=== PATIENT | male | born 1935 | race Caucasian/White ===

== ENCOUNTER 2020-12-08 05:35 | Outpatient (CLI) | payer MEDICARE ==
[~2020-12-08] VITALS: Ht 172.7 cm; Wt 80.9 kg
[2020-12-08] MEDS ORDERED: LISI10TA25 PO (12:24)
[2020-12-08] MEDS ORDERED: SIMV40TA25 PO (12:24)
[2020-12-08] MEDS ORDERED: ATEN25TA PO (12:24)
[2020-12-08] MEDS ORDERED: GBPN600T PO (12:24)
[2020-12-08] MEDS ORDERED: GLIM4TAB56 PO (12:24)
[2020-12-08] MEDS ORDERED: TRIA1TAB5 PO (12:24)
[2020-12-08] MEDS ORDERED: TIZA4TAB4 PO (12:24)
[2020-12-08] MEDS ORDERED: CANA1TAB8 PO (12:38)
== END 2020-12-08 12:45 | disposition home or self-care (01) ==
LOC: PREOP 05:35
PROVIDERS: ATTEND Otolaryngology Otolaryngology/Facial Plastic Surgery
DX: Z01.818 Encounter for other preprocedural examination (principal)

== ENCOUNTER 2020-12-15 08:38 | Day surgery (SDC) | payer MEDICARE ==
[~2020-12-15] VITALS: Ht 172.7 cm; Wt 80.9 kg
[2020-12-15] VITALS (9 sets, daily range): BP systolic 114–165; BP diastolic 52–96
[~2020-12-15 08:38] MED LIST: ATEN25TA PO; CANA1TAB8 PO; GBPN600T PO; GLIM4TAB56 PO; LISI10TA25 PO; SIMV40TA25 PO; TIZA4TAB4 PO; TRIA1TAB5 PO
[2020-12-15] MEDS ORDERED: MUPIROCIN 2% OINT 22 GM (BACTROBAN) TUBE ONE (08:45)
[2020-12-15] MEDS ORDERED: LIDOCAINE/EPI 1%-1:100,000 (XYLOCAINE) 20ML ONE (08:45)
[2020-12-15] MEDS ORDERED: fentaNYL INJ 100 MCG/2 ML AMP ONE (08:48)
[2020-12-15] MEDS ORDERED: proPOfol 200 MG/20 ML (DIPRIVAN) VIAL IV ONE (08:56)
[2020-12-15] MEDS ORDERED: ONDANSETRON 4 MG/2 ML (SDV) Z0FRAN ONE (08:56)
[2020-12-15] MEDS ORDERED: SEVOFLURANE (ULTANE) 15 ML INHAL SOLN ONE ×2 (08:56→11:46)
[2020-12-15] MEDS ORDERED: LIDOCAINE PF 2% 5 ML (XYLOCAINE) VIAL ONE (08:56)
[2020-12-15] MEDS ORDERED: ROCURONIUM 10 MG/ML 5 ML SYRINGE IV ONE (08:56)
--- NOTE | 2020-12-15 08:58 | Progress Note-Pre Operative ---
Pre-Operative Progress Note H&P Reviewed The H&P was reviewed, patient examined and no changes noted. Date Seen by Provider: December 15, 2020 Time Seen by Provider: 08:45 Date H&P Reviewed: December 15, 2020 Time H&P Reviewed: 08:45 Pre-Operative Diagnosis: Skin Cancer-Ear SYLVIE HALL MD December 15, 2020 08:58
[2020-12-15] MEDS ORDERED: LACTATED RINGERS 1,000 ML IV PRN (09:00)
--- NOTE | 2020-12-15 09:42 | Progress Note-Post Operative ---
Post-Operative Progess Note Surgeon (s)/District Sales Leader (s) Surgeon SYLVIE HALL MD District Sales Leader n/a Pre-Operative Diagnosis Skin Cancer-Ear Post-Operative Diagnosis same Post-Op Procedure Note Date of Procedure: December 15, 2020 Name of Procedure Performed: Excision of Right EAr Lesion, Reconstruction with Local Advancement Flap Description & Findings Description and Findings: n/a Anesthesia Type gen lma Estimated Blood Loss minimal Packing none. Specimen(s) collected/removed rigth ear lesion to pathology SYLVIE HALL MD December 15, 2020 09:42
[2020-12-15] MEDS ORDERED: HYDROcodone/APAP 5 MG/325 MG (LORTAB) TAB PO PRN (09:45)
[2020-12-15] MEDS ORDERED: ACETAMINOPHEN 325 MG TABLET PO PRN (09:45)
[2020-12-15] MEDS ORDERED: ONDANSETRON 4 MG/2 ML (SDV) Z0FRAN IVP PRN (12:15)
[2020-12-15] MEDS ORDERED: morphine INJ 10 MG/ML 1ML (SYR OR VIAL) IVP ONE (12:15)
[2020-12-15] MEDS ORDERED: CEPH500T PO (13:39)
[2020-12-15] MEDS ORDERED: ACHD5005 PO (13:39)
--- NOTE | 2020-12-25 14:13 | Anesthesia-General Post-Op ---
General Patient Condition Mental Status/LOC: Same as Preop Cardiovascular: Satisfactory Nausea/Vomiting: Absent Respiratory: Satisfactory Pain: Controlled Complications: Absent Post Op Complications Complications None Follow Up Care/Instructions Patient Instructions None needed. Anesthesia/Patient Condition Patient Condition Post-dated progress note: Patient was seen after the procedure on 12-15-20 at approximately 1330 and he was doing well, no complaints, stable vital signs, no apparent adverse anesthesia pr oblems. CHRISTO FRANKLIN DO December 25, 2020 14:13
== END 2020-12-15 13:45 | disposition home or self-care (01) ==
LOC: SDC 08:38
PROVIDERS: ATTEND Otolaryngology Otolaryngology/Facial Plastic Surgery
DX: C44.222 Squamous cell carcinoma of skin of right ear and external auricular canal (principal); M19.90 Unspecified osteoarthritis, unspecified site; E11.9 Type 2 diabetes mellitus without complications; Z90.89 Acquired absence of other organs; Z79.899 Other long term (current) drug therapy; Z79.84 Long term (current) use of oral hypoglycemic drugs; Z83.3 Family history of diabetes mellitus
CPT/HCPCS: 82947; 87081; 88305; 88331; 88332

== ENCOUNTER 2021-04-12 05:32 | Outpatient (CLI) | payer MEDICARE ==
[~2021-04-12] VITALS: Ht 172.7 cm; Wt 80.9 kg
[~2021-04-12 05:32] MED LIST changes: +ACHD5005 PO; +CEPH500T PO
[2021-04-12] MEDS ORDERED: ASPI-999 PO (15:12)
== END 2021-04-12 15:27 | disposition home or self-care (01) ==
LOC: PREOP 05:32
PROVIDERS: ATTEND Otolaryngology Otolaryngology/Facial Plastic Surgery
DX: Z01.818 Encounter for other preprocedural examination (principal)

== ENCOUNTER 2021-04-19 07:27 | Day surgery (SDC) | payer MEDICARE ==
[~2021-04-19] VITALS: Ht 172.7 cm; Wt 80.9 kg
[2021-04-19] VITALS (10 sets, daily range): BP systolic 131–166; BP diastolic 56–79
[~2021-04-19 07:27] MED LIST changes: +ASPI-999 PO
--- OUTSIDE RECORDS SUMMARY | 2021-04-19 07:31 | XMS REPORT | Clinical Summary ---
Author Author [facility] Organization [facility] Address Unknown Phone Unavailable Care Team Providers Care Exerciser Name Role Phone Qasim Norton MD PCP Allergies Comments Active Allergy Reactions Severity Noted Date Last time it was used on his feet it did not bother him but had previously itched/rash locally Povidone-Iodine 07/03/2015 Medications End Date Status Medication Sig Dispensed Refills Start Date Active atenolol (TENORMIN) 50 MG 0 tablet 5 Active doxycycline hyclate 0 (VIBRAMYCIN) 50 MG 5 capsule Active glimepiride (AMARYL) 2 MG 0 tablet 5 Active lisinopril 0 (PRINIVIL,ZESTRIL) 20 MG 5 tablet Active metFORMIN (GLUCOPHAGE) 0 1000 MG tablet 5 Active simvastatin (ZOCOR) 40 MG 0 tablet 5 Active triamterene-hydrochloroth 0 iazide (MAXZIDE) 75-50 mg 5 per tablet Active gabapentin (NEURONTIN) Take 300 mg 0 300 MG capsule by mouth 3 (three) times a day. Active ketoconazole (NIZORAL) 2 Apply tiw 120 mL 6 1 % shampoo 6 Active fluocinonide (LIDEX) 0.05 Apply 60 mL 6 % external topically 7 solutionIndications: daily. 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 Family History Medical History Relation Name Comments Diabetes Mother Relation Name Status Comments Father Mother Social History Date Tobacco Use Types Packs/Day Years Used Former Smoker Comments Alcohol Use Standard Drinks/Week No 0 (1 standard drink = 0.6 o z pure alcohol) Sex Assigned at Date Recorded Not on file Last Filed Vital Signs Reading Time Taken Comments Vital Sign 138/64 10/21/2016 1:56 PM CDT Blood Pressure 82 10/21/2016 1:56 PM CDT Pulse 36.4 C (97.6 F) 10/21/2016 1:56 PM CDT Temperature 18 10/21/2016 1:56 PM CDT Respiratory Rate 91% 10/21/2016 1:56 PM CDT Oxygen Saturation - - Inhaled Oxygen Concentration 88.9 kg (196 lb) 10/21/2016 1:56 PM CDT Weight 172.7 cm (5' 8") 10/21/2016 1:56 PM CDT Height 29.8 10/21/2016 1:56 PM CDT Body Mass Index Plan of Treatment Health Maintenance Due Date Last Done Comments Td/Tdap# 1935 Zoster Vaccine# (1 of 2) 1987 Fall Risk Assessment # 2002 Pneumococcal Vaccine: 65+ 2002 Years (1 of 1 - PPSV23) Influenza Vaccine (#1) 2021 Results Not on filefrom Last 3 Months Insurance Type Payer Benefit Subscriber ID Effective Phone Address Plan / Dates Group Medicare MEDICARE MEDICARE [id number] [place] PART A B [facility] OUT OF [id number] [id number] [facility] Jose Cruz,Salomón R Personal/F Self [address] [place] (Home) [place], [place] [address] Jose Cruz,Salomón R Personal/F Self [address] [place] (Home) [place] [id number] Advance Directives For more information, please contact: [phone] 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
[2021-04-19] MEDS ORDERED: ONDANSETRON 4 MG/2 ML (SDV) Z0FRAN ONE (07:35)
[2021-04-19] MEDS ORDERED: proPOfol 200 MG/20 ML (DIPRIVAN) VIAL IV ONE (07:35)
[2021-04-19] MEDS ORDERED: LIDOCAINE PF 2% 5 ML (XYLOCAINE) VIAL ONE (07:35)
[2021-04-19] MEDS ORDERED: fentaNYL INJ 100 MCG/2 ML AMP ONE (07:35)
[2021-04-19] MEDS ORDERED: MUPIROCIN 2% OINT 22 GM (BACTROBAN) TUBE ONE (07:37)
[2021-04-19] MEDS ORDERED: LIDOCAINE/EPI 1%-1:100,000 (XYLOCAINE) 20ML ONE (07:37)
[2021-04-19] MEDS ORDERED: LACTATED RINGERS 1,000 ML IV PRN (08:00)
--- NOTE | 2021-04-19 09:05 | Progress Note-Pre Operative ---
Pre-Operative Progress Note H&P Reviewed The H&P was reviewed, patient examined and no changes noted. Date Seen by Provider: Apr 19, 2021 Time Seen by Provider: 07:30 Date H&P Reviewed: Apr 19, 2021 Time H&P Reviewed: 07:30 Pre-Operative Diagnosis: Rigth Post-Auricular Lesion SYLVIE HALL MD Apr 19, 2021 09:05
--- NOTE | 2021-04-19 09:06 | Progress Note-Post Operative ---
Post-Operative Progess Note Surgeon (s)/Boat Cleaning Supervisor (s) Surgeon SYLVIE HALL MD Boat Cleaning Supervisor n/a Pre-Operative Diagnosis Rigth Post-Auricular Lesion Post-Operative Diagnosis same Post-Op Procedure Note Date of Procedure: Apr 19, 2021 Name of Procedure Performed: Excison of Right Post-Auricular Lesion, Reconstruction with Full Thickness Skin Graft, Donor Site Right Neck Description & Findings Description and Findings: n/a Anesthesia Type lma Estimated Blood Loss minimal Packing none. Specimen(s) collected/removed right post auricular lesion for frozen section SYLVIE HALL MD Apr 19, 2021 09:06
[2021-04-19] MEDS ORDERED: ACETAMINOPHEN 325 MG TABLET PO PRN (09:15)
[2021-04-19] MEDS ORDERED: HYDROcodone/APAP 5 MG/325 MG (LORTAB) TAB PO PRN (09:15)
[2021-04-19] MEDS ORDERED: SEVOFLURANE (ULTANE) 15 ML INHAL SOLN ONE (09:44)
[2021-04-19] MEDS ORDERED: ACHD5005 PO (11:13)
[2021-04-19] MEDS ORDERED: CEPH500T PO (11:13)
--- NOTE | 2021-04-19 11:36 | Anesthesia-General Post-Op ---
General Patient Condition Mental Status/LOC: Same as Preop Cardiovascular: Satisfactory Nausea/Vomiting: Absent Respiratory: Satisfactory Pain: Controlled Complications: Absent Post Op Complications Complications None Follow Up Care/Instructions Patient Instructions None needed. Anesthesia/Patient Condition Patient Condition Patient is doing well, no complaints, stable vital signs, no apparent adverse anesthesia problems. No complications reported per nursing. JANET LOPEZ CRNA Apr 19, 2021 11:36
== END 2021-04-19 11:37 | disposition home or self-care (01) ==
LOC: SDC 07:27
PROVIDERS: ATTEND Otolaryngology Otolaryngology/Facial Plastic Surgery
DX: C44.222 Squamous cell carcinoma of skin of right ear and external auricular canal (principal); Z79.899 Other long term (current) drug therapy; Z79.82 Long term (current) use of aspirin; Z79.84 Long term (current) use of oral hypoglycemic drugs
CPT/HCPCS: 87081